=== PATIENT | male | born 1990 | race Caucasian/White ===

== ENCOUNTER 2018-06-11 08:49 | Emergency (ER) | payer SELFPAY ==
[2018-06-11 09:04] VITALS: BP 122/79; PULSE 86; TEMP 98.6; BMI 27.3
--- NOTE | 2018-06-11 09:42 | PDOC ---
History of Present Illness - General Chief Complaint: Rash Stated Complaint: Rash Time Seen by Provider: 06/11/18 09:15 History Source: Patient, Spouse - History of Present Illness Initial Comments: 06/11/18 09:30 28 yo M w/ no sig PMHx comes in c/o 3 days of an itchy rash on his face, behind his ears, on his arms and hands. He says that he works for an "[employer]" and is not sure if he got exposed to a chemical there which he is allergic to. NO other complaints today. NO fever/chills, no NVD, no chest tightness, no throat tightness, no recent travel. Pt's and daughter have similar symptoms 06/11/18 11:49 Past History - Past Medical History Allergies/Adverse Reactions: Allergies Allergy/AdvReac Type Severity Reaction Status Date / Time No Known Allergies Allergy Verified 06/11/18 09:03 Home Medications: Ambulatory Orders Diphenhydramine [Benadryl -] 50 mg PO TID PRN 3 Days #20 capsule 06/11/18 Permethrin 5% Topical Cream [Elimite -] 1 applic TP ONCE 1 Days #2 tube COPD: No CHF: No - Suicide/Smoking/Psychosocial Hx Smoking History: Never smoked Have you smoked in the past 12 months: No Information on smoking cessation initiated: No Hx Alcohol Use: No Drug/Substance Use Hx: No Review of Systems - Review of Systems Able to Perform ROS?: Yes Constitutional: No: Chills, Fever, Malaise, Night Sweats HEENTM: No: Eye Pain, Recent change in vision, Throat Pain Respiratory: No: Cough, Shortness of Breath Cardiac (ROS): No: Chest Pain, Palpitations, Chest Tightness ABD/GI: No: Diarrhea, Nausea, Vomiting, Abdominal cramping : No: Dysuria, Hematuria Musculoskeletal: No: Back Pain Integumentary: Yes: Rash Neurological: No: Headache, Numbness, Dizziness Psychiatric: No: Change in Appetite Endocrine: No: Unexplained Weight Loss *Physical Exam - Vital Signs Last Vital Signs Temp Pulse Resp BP Pulse Ox 98.6 F 86 16 122/79 100 06/11/18 08:50 06/11/18 08:50 06/11/18 08:50 06/11/18 08:50 06/11/18 08:50 - Physical Exam General Appearance: Yes: Nourished. No: Apparent Distress HEENT: positive: TANA, Normal ENT Inspection, Normal Voice, Pharynx Normal (no uvula edema). negative: Pale Conjunctivae, Scleral Icterus (R), Scleral Icterus (L) Neck: positive: Supple. negative: Decreased range of motion, Stridor, Tender midline Respiratory/Chest: positive: Lungs Clear, Normal Breath Sounds. negative: Respiratory Distress, Accessory Muscle Use, Wheezing Cardiovascular: positive: Regular Rhythm, Regular Rate Gastrointestinal/Abdominal: positive: Normal Bowel Sounds, Soft. negative: Tender Musculoskeletal: positive: Normal Inspection. negative: CVA Tenderness, Decreased Range of Motion Extremity: positive: Normal Capillary Refill, Normal Inspection, Normal Range of Motion. negative: Tender, Pedal Edema Integumentary: positive: Normal Color, Dry, Rash (Pinpoint insect bites behind ears, on hands, forearms, with linear excoriations seen on forearms. (+) erythematous plaques seen on face with mild urtiaria, no vesicles. no crusting seen). negative: Jaundice Neurologic: positive: Fully Oriented, Alert, Normal Mood/Affect Moderate Sedation - Procedure Monitoring Vital Signs: Procedure Monitoring Vital Signs Temperature 98.6 F 06/11/18 08:50 Pulse Rate 86 06/11/18 08:50 Respiratory Rate 16 06/11/18 08:50 Blood Pressure 122/79 06/11/18 08:50 O2 Sat by Pulse Oximetry (%) 100 06/11/18 08:50 Medical Decision Making - Medical Decision Making 06/11/18 09:52 28 yo M with rash which looks like scabies. Also has a rash on face which looks like it could be an allergic reaction. No stridor/wheezing, no uvula edema. Will give permethrin and benadryl. I instructed patient to leave permethrin on for up to 14 hrs, avoid eyes and mouth, then rinse it. I also told him to wash all clothes and beddings in hot water. Return for worsening/concerning symptoms PMD follow up Pt verbalizes understanding and agrees with plan *DC/Admit/Observation/Transfer Diagnosis at time of Disposition: Rash, Scabies - Discharge Dispostion Disposition: HOME Condition at time of disposition: Stable Decision to Admit order: No - Prescriptions Prescriptions: Diphenhydramine [Benadryl -] 50 mg PO TID PRN 3 Days #20 capsule PRN Reason: itching Permethrin 5% Topical Cream [Elimite -] 1 applic TP ONCE 1 Days #2 tube - Referrals - Patient Instructions Printed Discharge Instructions: DI for Scabies - Post Discharge Activity
== END 2018-06-11 09:51 | disposition home or self-care (01) ==
LOC: JER 08:49 → JERFT 08:49
DX: B86 Scabies (principal)
CPT/HCPCS: 99281-25